=== PATIENT | male | born 1950 | race Caucasian/White ===

== ENCOUNTER 2020-01-01 12:35 | Outpatient (REF) | payer BC, SELFPAY ==
[2020-01-01 14:36] LABS: MANUAL DIFF FLAG NO
[2020-01-01 14:43] LABS: Basophils Percent Auto 0.6 % (0-2); Eosinophils Absolute Auto 0.1 X10*3/uL (0.0-0.4); Eosinophils Percent Auto 1.5 % (0-4); Hematocrit 49.3 % (42-52); Hemoglobin 15.5 g/dl (14.0-18.0); Imm Gran Abs Auto 0.01 X10*3/uL (0.00-0.03); Imm Gran Pct Auto 0.2 % (0.0-0.4); Lymphocytes Absolute Auto 0.8 X10*3/uL (1.2-4.9); Lymphocytes Percent Auto 16.7 % (20-40); Mean Corpuscular HGB Conc 31.4 g/dl (31.0-36.0); Mean Corpuscular Hemoglobin 28.8 pg (27.0-33.0); Mean Corpuscular Volume 91.5 fL (80-98); Monocytes Absolute Auto 0.5 X10*3/uL (0.1-1.2); Monocytes Percent Auto 9.6 % (2-11); Neutrophils Absolute Auto 3.4 X10*3/uL (2.0-8.3); Neutrophils Percent Auto 71.4 % (45-73); Platelet Count 196 X10*3/uL (160-400); Red Blood Count 5.39 X10*6/uL (4.60-5.80); Red Cell Distribution Width 14.8 % (11.0-16.0); White Blood Count 4.8 X10*3/uL (4.8-10.8)
[2020-01-01 15:25] LABS: Alanine Aminotransferase 72 U/L (0-40); Albumin Level 3.9 g/dL (3.5-5.0); Alkaline Phosphatase 102 U/L (39-117); Anion Gap 11 (12-20); Aspartate Amino Transferase 51 U/L (5-37); Bilirubin Total 0.6 mg/dL (0.0-1.0); Blood Urea Nitrogen 20 mg/dL (9-16); Calcium 8.7 mg/dL (8.4-10.2); Carbon Dioxide 32 mmol/L (22-29); Chloride 103 mmol/L (96-108); Estimated Average Glucose 108 mg/dL; Estimated Glomerular Filt Rate > 60; Glucose Fasting 78 mg/dL (60-99); Hemoglobin A1c % 5.4 %; Potassium 4.8 mmol/l (3.3-5.1); Sodium 141 mmol/L (135-145); Total Protein 7.1 g/dL (6.5-8.0)
== END 2020-01-01 12:36 | disposition home or self-care (01) ==
LOC: HO.HMGCLDS 12:35
PROVIDERS: PCP Family Medicine; Visit Provider Family Medicine
DX: E11.9 Type 2 diabetes mellitus without complications (principal)
CPT/HCPCS: 36415; 80053; 83036; 85025

== ENCOUNTER 2020-08-11 12:47 | Outpatient (REF) | payer BC, SELFPAY ==
[2020-08-11 13:48] LABS: MANUAL DIFF FLAG NO
[2020-08-11 13:53] LABS: Basophils Percent Auto 0.4 % (0-2); Eosinophils Absolute Auto 0.1 X10*3/uL (0.0-0.4); Hemoglobin 16.2 g/dl (14.0-18.0); Imm Gran Abs Auto 0.01 X10*3/uL (0.00-0.03); Imm Gran Pct Auto 0.2 % (0.0-0.4); Lymphocytes Absolute Auto 0.8 X10*3/uL (1.2-4.9); Lymphocytes Percent Auto 17.7 % (20-40); Mean Corpuscular HGB Conc 31.8 g/dl (31.0-36.0); Mean Corpuscular Hemoglobin 29.9 pg (27.0-33.0); Mean Corpuscular Volume 94.3 fL (80-98); Monocytes Absolute Auto 0.3 X10*3/uL (0.1-1.2); Monocytes Percent Auto 7.5 % (2-11); Neutrophils Absolute Auto 3.3 X10*3/uL (2.0-8.3); Neutrophils Percent Auto 72.2 % (45-73); Platelet Count 203 X10*3/uL (160-400); Red Blood Count 5.41 X10*6/uL (4.60-5.80); Red Cell Distribution Width 14.1 % (11.0-16.0); White Blood Count 4.5 X10*3/uL (4.8-10.8)
[2020-08-11 14:20] LABS: Alanine Aminotransferase 28 U/L (0-40); Albumin Level 3.9 g/dL (3.5-5.0); Alkaline Phosphatase 91 U/L (39-117); Anion Gap 12 (12-20); Aspartate Amino Transferase 30 U/L (5-37); Bilirubin Total 0.7 mg/dL (0.0-1.0); Blood Urea Nitrogen 25 mg/dL (9-16); Calcium 9.4 mg/dL (8.4-10.2); Carbon Dioxide 31 mmol/L (22-29); Chloride 105 mmol/L (96-108); Estimated Glomerular Filt Rate > 60; Glucose Random 77 mg/dL (60-115); Potassium 4.5 mmol/L (3.3-5.1); Sodium 143 mmol/L (135-145); Total Protein 7.1 g/dL (6.5-8.0)
[2020-08-11 14:33] LABS: Erythrocyte Sedimentation Rate 9 MM/HR (0-15)
[2020-08-11 14:40] LABS: Free T4 (Free Thyroxine) 0.93 ng/dL (0.71-1.85); Prostate Specific Antigen Scr 0.37 ng/mL (<0.05-4.0)
== END 2020-08-11 12:48 | disposition home or self-care (01) ==
LOC: HO.HMGCLDS 12:47
PROVIDERS: PCP Family Medicine; Visit Provider Family Medicine
DX: Z12.5 Encounter for screening for malignant neoplasm of prostate (principal); R53.83 Other fatigue
CPT/HCPCS: 36415; 80053; 84153; 84439; 84443; 85025; 85652

== ENCOUNTER 2021-05-27 13:34 | Outpatient (REF) | payer BC, SELFPAY ==
[2021-05-27 15:59] LABS: Eosinophils Absolute Auto 0.1 X10*3/uL (0.0-0.4); Eosinophils Percent Auto 1.4 % (0-4); Imm Gran Abs Auto 0.01 X10*3/uL (0.00-0.03); Imm Gran Pct Auto 0.2 % (0.0-0.4); MANUAL DIFF FLAG SCAN; Mean Platelet Volume 13.5 fL (9.4-12.4); Red Cell Distribution Width 14.9 % (11.0-16.0); SCAN SMEAR FLAG 1
[2021-05-27 16:01] LABS: Basophils Percent Auto 0.2 % (0-2); Hemoglobin 16.2 g/dl (14.0-18.0); Lymphocytes Absolute Auto 0.7 X10*3/uL (1.2-4.9); Lymphocytes Percent Auto 16.2 % (20-40); Mean Corpuscular HGB Conc 31.8 g/dl (31.0-36.0); Mean Corpuscular Hemoglobin 29.7 pg (27.0-33.0); Mean Corpuscular Volume 93.6 fL (80.0-98.0); Monocytes Absolute Auto 0.4 X10*3/uL (0.1-1.2); Monocytes Percent Auto 9.6 % (2-11); Neutrophils Absolute Auto 3.2 x10*3/uL (2.0-8.3); Neutrophils Percent Auto 72.4 % (45-73); Platelet Count 153 X10*3/uL (160-400); Red Blood Count 5.45 X10*6/uL (4.60-5.80); White Blood Count 4.4 X10*3/uL (4.8-10.8)
[2021-05-27 16:11] LABS: Alanine Aminotransferase 31 U/L (0-40); Albumin Level 3.8 g/dL (3.5-5.0); Alkaline Phosphatase 84 U/L (39-117); Anion Gap 12 (12-20); Aspartate Amino Transferase 34 U/L (5-37); Bilirubin Total 0.8 mg/dL (0.0-1.0); Blood Urea Nitrogen 21 mg/dL (9-16); Calcium 9.5 mg/dL (8.4-10.2); Carbon Dioxide 29 mmol/L (22-29); Chloride 104 mmol/L (96-108); Estimated Glomerular Filt Rate > 60; Glucose Random 75 mg/dL (60-115); PLT ABN DIST 1; Potassium 4.5 mmol/L (3.3-5.1); Sodium 140 mmol/L (135-145); Total Protein 7.3 g/dL (6.5-8.0)
[2021-05-27 16:50] LABS: SLIDE REVIEW VERIFIED
== END 2021-05-27 13:35 | disposition home or self-care (01) ==
LOC: HO.HMGCLDS 13:34
PROVIDERS: Visit Provider Family Medicine
DX: R53.1 Weakness (principal); I10 Essential (primary) hypertension; I48.91 Unspecified atrial fibrillation
CPT/HCPCS: 36415; 80053; 85025

== ENCOUNTER 2021-10-02 12:15 | Outpatient (REF) | payer BC, SELFPAY ==
[2021-10-02 13:38] LABS: MANUAL DIFF FLAG NO
[2021-10-02 13:52] LABS: Basophils Percent Auto 0.4 % (0-2); Eosinophils Percent Auto 0.8 % (0-4); Hematocrit 47.7 % (42.0-52.0); Hemoglobin 15.6 g/dl (14.0-18.0); Imm Gran Abs Auto 0.01 X10*3/uL (0.00-0.03); Imm Gran Pct Auto 0.2 % (0.0-0.4); Lymphocytes Absolute Auto 0.7 X10*3/uL (1.2-4.9); Lymphocytes Percent Auto 14.2 % (20-40); Mean Corpuscular HGB Conc 32.7 g/dl (31.0-36.0); Mean Corpuscular Hemoglobin 31.1 pg (27.0-33.0); Mean Corpuscular Volume 95.2 fL (80.0-98.0); Monocytes Absolute Auto 0.5 X10*3/uL (0.1-1.2); Monocytes Percent Auto 10.7 % (2-11); Neutrophils Absolute Auto 3.6 x10*3/uL (2.0-8.3); Neutrophils Percent Auto 73.7 % (45-73); Platelet Count 152 X10*3/uL (160-400); Red Blood Count 5.01 X10*6/uL (4.60-5.80); Red Cell Distribution Width 14.4 % (11.0-16.0); White Blood Count 4.9 X10*3/uL (4.8-10.8)
[2021-10-02 14:02] LABS: Anion Gap 15 (12-20); Blood Urea Nitrogen 19 mg/dL (9-16); Carbon Dioxide 26 mmol/L (22-29); Chloride 103 mmol/L (96-108); Estimated Glomerular Filt Rate > 60; Potassium 4.4 mmol/L (3.3-5.1); Sodium 140 mmol/L (135-145)
== END 2021-10-02 12:16 | disposition home or self-care (01) ==
LOC: HO.10HDL 12:15
PROVIDERS: Visit Provider Family Medicine
DX: I10 Essential (primary) hypertension (principal); I48.91 Unspecified atrial fibrillation; S00.03XD Contusion of scalp, subsequent encounter
CPT/HCPCS: 36415; 80051; 82565; 84520; 85025

== ENCOUNTER 2021-10-26 11:38 | Emergency (ER) | payer BC, SELFPAY ==
--- NOTE | ~2021-10-26 | CT_ITS ---
EXAMINATION: CT HEAD WITHOUT CONTRAST CLINICAL INFORMATION: Mass at vertex. COMPARISON: None TECHNIQUE: Contiguous axial imaging was performed from the skull base to vertex without intravenous administration of contrast. Coronal and sagittal reformatted images were obtained. This CT examination was performed using dose optimization techniques as appropriate, variously including the following: *Automated exposure control *Adjustment of mA and/or kV according to patient size (this includes techniques or standardized protocols for targeted exams where dose is matched to indication/reason for exam; i.e. extremities or head) *Use of iterative reconstruction technique DLP: 820 mGy-cm FINDINGS: There is mild widening of the cortical sulci and associated ventriculomegaly. Asymmetric dilatation of the right lateral ventricle most pronounced in the right frontal horn. The third and fourth ventricles are in their normal midline position. The basilar and prepontine cisterns are unremarkable. Encephalomalacia is seen extending from the anterior aspect of the right temporal lobe in the inferior right frontal and parietal lobe in the distribution of the right middle cerebral artery. Encephalomalacia is also seen posteromedially in the left occipital lobe with enlargement of the adjacent left occipital horn. There is no acute intra or extracerebral abnormality. There is no mass effect or midline shift. Moderate size complex septated lesion to the right of midline at the vertex measuring approximately 2.8 x 2.2 x 2.5 cm (image 3, series 3; image 93, series 8). Mild subjacent subgaleal reaction is seen. Sections through the bony calvarium are unremarkable. The orbits are intact. The paranasal sinuses show mild mucosal thickening in the ethmoid sinuses and visualized left maxillary sinus. The mastoid air cells are clear. CT/CT head/brain wo IV con IMPRESSION: 1. No acute intracranial abnormality. 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 2. Complex subcutaneous lesion containing air in the cortex is detailed above. This is nonspecific and could represent is a complex cyst or abscess. Malignancy would be less likely but cannot be excluded. Surgical consultation is recommended. Biopsy should be considered.
[2021-10-26 11:46] VITALS: BP 111/69; PULSE 74; RESP 16; TEMP 36.1; O2SAT 100; BMI 24.3
--- NOTE | 2021-10-26 15:05 | ED.GENADULT ---
HPI - General Adult General Chief complaint: Head Injury Stated complaint: Bleeding hematoma on head Time Seen by Provider: 10/26/21 12:04 Source: patient and family Mode of arrival: ambulatory History of Present Illness HPI narrative: 71-year-old male with history of throat CA and a fall in mid August that he was evaluated at [facility] for and had a scalp laceration that was repaired with absorbable sutures. Patient then states that after a couple of weeks he began informing a large mass at the top of his head, he has been evaluated by his primary care provider and is currently on anticoagulation. Patient then states that this morning it began bleeding significantly from the top of his head where he had a previous injury that the time of my evaluation has stopped. Related Data Allergies Allergy/AdvReac Type Severity Reaction Status Date / Time No Known Allergies Allergy Verified 10/26/21 11:51 Review of Systems Review of Systems: Pertinent positives and negatives as stated in HPI 10 point review of systems is otherwise negative. PMFSH Past Medical History Source: nursing notes reviewed Social History Social History Advance Directives: Yes Advance Directives Information Provided: Yes Advance Directives on File: No Physical Exam ED Vital Signs: Vital Signs - 24 hr 10/26/21 11:46 Temperature 96.9 F Pulse Rate 74 Respiratory Rate 16 Blood Pressure 111/69 Pulse Oximetry 100 Oxygen Delivery Method Room Air BMI result Body Mass Index 24.3 VITAL SIGNS: Reviewed. GENERAL: Well developed, well nourished, in no acute distress. HEAD: Normocephalic/large dark, hard, thickened protrusion from the scalp that is hemostatic, does not appear as a classic hematoma EYES: PERRLA, EOMI EARS: Ext canals without abnormality OROPHARYNX: no oral lesions noted, posterior pharynx clear LUNGS: Normal breath sounds. No adventitious sounds or accessory muscle use. SpO2<100> CARDIOVASCULAR: Regular rate and rhythm without noted murmurs ABDOMEN: Soft, non-tender, non-distended with bowel sounds. MUSCULOSKELETAL: No tenderness, deformities, or effusions noted on gross inspection. EXTREMITIES: No cyanosis, clubbing or edema. SKIN: Inspection of the skin reveals no rashes NEUROLOGIC: Alert and oriented x 4. Strength and sensation to light touch were grossly intact x 4. Course Course Course Narrative: 71-year-old male with history and clinical presentation of possible and crusted hematoma, however the sequence of events is inconsistent as patient denies any further traumatic injury to the head/scalp area. Protrusion from the scalp almost appears to be mass-like. Will obtain CT scan for further evaluation. Patient is otherwise hemodynamically stable and on review of CT scan they recommend surgical consult and I did discuss the case with Dr. Coleman who came by and saw the patient at bedside and removed an approximate 2 cm hardened hematoma that appeared to a formed after the laceration had opened. Bleeding was controlled with silver nitrate and the scalp was redressed, dressing changes were provided to the and patient is currently stable for discharge to home. He will follow-up with Dr. Arreola is in 2 weeks. Discharge Plan Discharge Clinical Impression: Scalp hematoma Patient Disposition: Home, Self-Care Instructions: Hematoma (ED) Additional Instructions: 1. Continue the dressing changes, daily, as explained by Dr. Coleman 2. A referral has been provided to you below and you should follow-up with Dr. Coleman is in 2 weeks. Return to the ER for worsening symptoms. Referrals: Omer Murillo MD [Primary Care Provider] - (Scalp hematoma) Samm Coleman MD [Physician] - 2 weeks (Scalp hematoma)
--- NOTE | 2021-10-26 16:59 | P.CONGS_ITS ---
History of Present Illness Consult details Consult date: 10/26/21 Narrative: 71-year-old male here in the ER because of bleeding from a previous laceration. He says that he had fallen and hit his head about 8 weeks ago and required sutures for closure at the ER in [facility] at that time. He is on a blood thinner and about 2 weeks layer, his had noticed this small lump coming through the laceration site. Sutures apparently for absorbable and this had dissolved around that time already. This red lump had persisted and was noted to have significant oozing today. His therefore brought him to the ER. Denies any pain. Denies any repeated trauma. Review of Systems Constitutional: Constitutional: Denies chills and Denies fever(s) Cardiovascular: Cardiovascular: Denies chest pain, Denies dyspnea and Reports dyspnea on exertion Respiratory: Respiratory: Denies cough, Denies dyspnea and Reports dyspnea on exertion Gastrointestinal: Gastrointestinal: Denies hematochezia and Denies change in bowel habits Genitourinary: Genitourinary: Denies hematuria and Denies difficulty urinating Musculoskeletal: Musculoskeletal: Denies back pain and Denies limited range of motion Neurologic: Denies focal weakness and Denies convulsions Psychiatric: Psychiatric: Denies depression and Denies mood swings PMFSH Past Medical History Medical History (Updated 10/26/21 @ 17:02 by Samm Coleman MD) Atrial fibrillation Social History Social History Advance Directives: Yes Advance Directives Information Provided: Yes Advance Directives on File: No Meds Allergies Allergy/AdvReac Type Severity Reaction Status Date / Time No Known Allergies Allergy Verified 10/26/21 11:51 Physical Exam Vital Signs: Vital Signs: Last Vital Signs Temp 96.9 F 10/26/21 11:46 Pulse 74 10/26/21 11:46 Resp 16 10/26/21 11:46 BP 111/69 10/26/21 11:46 Pulse Ox 100 10/26/21 11:46 O2 Del Method 10/26/21 11:46 BMI result Body Mass Index 24.3 Const: General: comfortable and no acute distress Orientation/consciousness: patient oriented x3 HEENT: Other: at the crown of his head is note of an open wound with a large hematoma stuck to it. There was note of oozing at the base of the wound and the hematoma was removed. Neck: Neck: Yes no lymphadenopathy Resp: Auscultation: clear to auscultation bilaterally Cardio: Rhythm: abnormal rhythm GI: Palpation (GI): Soft to palpation, nontender and no guarding Neuro: General: patient oriented x3 Results Labs Labs: All other labs normal. Impressions Head CT 10/26/21 14:30 IMPRESSION: 1. No acute intracranial abnormality. 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 2. Complex subcutaneous lesion containing air in the cortex is detailed above. This is nonspecific and could represent is a complex cyst or abscess. Malignancy would be less likely but cannot be excluded. Surgical consultation is recommended. Biopsy should be considered. Assessment and Plan (1) Scalp hematoma: Status: Acute Examination shows a large open wound big hematoma. I was able to gently move the hematoma covering the entire wound. The wound dimension was about 2.5 cme by 2 cm.There was note of oozing 1 particular area. I used silver nitrate sticks to control this I then applied light wet to dry packing on the area and covered this with a gauze and wrapped the head with Justyna roll. I had showed the how to apply the dressings. Unfortunately, he is on a blood thinner which says he is unable to discontinue so there is always the risk of oozing from the area I can otherwise seen in the office for wound check down the line. The wound will be allowed to close by secondary intention. This will require good wound care. The patient's says she understands the instructions and is comfortable with the plan. Procedures Date of Service Date of Service: 10/26/21
[2021-10-26] MEDS: Silver Nitrate Applicator STICK..EA. 3 APPL TOPICAL (17:15)
== END 2021-10-26 17:28 | disposition home or self-care (01) ==
PROVIDERS: Emergency Provider Student in an Organized Health Care Education/Training Program; PCP Family Medicine
DX: S00.03XD Contusion of scalp, subsequent encounter (principal); X58.XXXD Exposure to other specified factors, subsequent encounter
CPT/HCPCS: 70450; 99283; 99284

== ENCOUNTER 2021-12-23 10:00 | Outpatient (REF) | payer MEDICARE, SELFPAY ==
[2021-12-23 11:58] LABS: Estimated Average Glucose 91 mg/dL; Hemoglobin A1c % 4.8 %
[2021-12-23 12:10] LABS: Alanine Aminotransferase 18 U/L (0-40); Albumin Level 3.8 g/dL (3.5-5.0); Alkaline Phosphatase 87 U/L (39-117); Anion Gap 15 (12-20); Aspartate Amino Transferase 35 U/L (5-37); Bilirubin Total 0.7 mg/dL (0.0-1.0); Blood Urea Nitrogen 19 mg/dL (9-16); Calcium 9.2 mg/dL (8.4-10.2); Carbon Dioxide 24 mmol/L (22-29); Chloride 106 mmol/L (96-108); Cholesterol 150 mg/dL; Estimated Glomerular Filt Rate > 60; Glucose Fasting 66 mg/dL (60-99); HDL Cholesterol 37 mg/dL; LDL Cholesterol Calculated 101 mg/dl; Potassium 4.4 mmol/L (3.3-5.1); Sodium 141 mmol/L (135-145); Total Protein 7.3 g/dL (6.5-8.0); Triglycerides 64 mg/dL
== END 2021-12-23 10:01 | disposition home or self-care (01) ==
LOC: HO.HMGCLDS 10:00
PROVIDERS: PCP Family Medicine; Visit Provider Family Medicine
DX: E11.9 Type 2 diabetes mellitus without complications (principal); E78.00 Pure hypercholesterolemia, unspecified; R63.4 Abnormal weight loss
CPT/HCPCS: 36415; 80053; 80061; 83036

== ENCOUNTER 2022-09-03 13:15 | Outpatient (REF) | payer MEDICARE, SELFPAY ==
[2022-09-03 16:48] LABS: MANUAL DIFF FLAG NO
[2022-09-03 17:12] LABS: Estimated Average Glucose 88 mg/dL; Hemoglobin A1c % 4.7 %
[2022-09-03 17:29] LABS: Basophils Percent Auto 0.2 % (0-2); Eosinophils Absolute Auto 0.1 X10*3/uL (0.0-0.4); Eosinophils Percent Auto 1.1 % (0-4); Hematocrit 52.7 % (42.0-52.0); Hemoglobin 17.1 g/dl (14.0-18.0); Imm Gran Abs Auto 0.01 X10*3/uL (0.00-0.03); Imm Gran Pct Auto 0.2 % (0.0-0.4); Lymphocytes Absolute Auto 0.7 X10*3/uL (1.2-4.9); Lymphocytes Percent Auto 15.2 % (20-40); Mean Corpuscular HGB Conc 32.4 g/dl (31.0-36.0); Mean Corpuscular Hemoglobin 30.5 pg (27.0-33.0); Mean Corpuscular Volume 93.9 fL (80.0-98.0); Mean Platelet Volume 13.9 fL (9.4-12.4); Monocytes Absolute Auto 0.4 X10*3/uL (0.1-1.2); Monocytes Percent Auto 9.1 % (2-11); Neutrophils Absolute Auto 3.5 x10*3/uL (2.0-8.3); Neutrophils Percent Auto 74.2 % (45-73); Platelet Count 173 X10*3/uL (160-400); Red Blood Count 5.61 X10*6/uL (4.60-5.80); Red Cell Distribution Width 13.8 % (11.0-16.0); White Blood Count 4.7 X10*3/uL (4.8-10.8)
[2022-09-03 17:44] LABS: Alanine Aminotransferase 26 U/L (0-40); Alkaline Phosphatase 94 U/L (39-117); Anion Gap 16 (12-20); Aspartate Amino Transferase 35 U/L (5-37); Bilirubin Total 0.9 mg/dL (0.0-1.0); Blood Urea Nitrogen 19 mg/dL (9-16); Calcium 10.3 mg/dL (8.4-10.2); Carbon Dioxide 23 mmol/L (22-29); Chloride 105 mmol/L (96-108); Estimated Glomerular Filt Rate > 60; Glucose Fasting 55 mg/dL (60-99); Potassium 4.4 mmol/L (3.3-5.1); Sodium 140 mmol/L (135-145); Total Protein 7.9 g/dL (6.5-8.0)
== END 2022-09-03 13:16 | disposition home or self-care (01) ==
LOC: HO.HMGCLDS 13:15
PROVIDERS: PCP Family Medicine; Visit Provider Family Medicine
DX: I10 Essential (primary) hypertension (principal); E11.9 Type 2 diabetes mellitus without complications; R53.1 Weakness
CPT/HCPCS: 36415; 80053; 83036; 85025

== ENCOUNTER 2023-06-07 16:06 | Emergency (ER) | payer MEDICARE, SELFPAY ==
--- NOTE | ~2023-06-07 | XR_ITS ---
EXAMINATION: XR ABDOMEN KUB CLINICAL INDICATION: G-tube placement COMPARISON: None available. TECHNIQUE: AP view of the abdomen. FINDINGS: There is uncertain position of the G-tube. Tube is seen projecting lateral to the stomach bubble. The tip of the tube is not included in the [id number]/imaged. Nonobstructive bowel gas pattern. No free air. Degenerative changes of the spine. XR/XR KUB IMPRESSION: Uncertain position of G-tube as described above. Repeat imaging recommended.
--- NOTE | ~2023-06-07 | XR_ITS ---
EXAMINATION: XR ABDOMEN KUB CLINICAL INDICATION: Gastrostomy replaced. COMPARISON: Abdominal radiographs dated 06/07/2023 at 4:49 PM. TECHNIQUE: AP view of the abdomen. 30 mL of Gastrografin was instilled into the gastrostomy tube. XR/XR KUB FINDINGS / IMPRESSION: There is a gastrostomy tube overlying the left upper abdomen. There is contrast within the proximal aspect of the stomach. On the single image provided there is no evidence of contrast extravasation. The bowel gas pattern is nonobstructive. There are degenerative changes of the spine.
[2023-06-07 16:28] VITALS: BP 111/70; PULSE 106; RESP 18; TEMP 37.2; O2SAT 97; BMI 25.8
--- NOTE | 2023-06-07 16:28 | ED_ITS ---
HPI - General Adult General Chief complaint: General Medical Stated complaint: Needs G-Tube Time Seen by Provider: 06/07/23 20:07 Source: patient Mode of arrival: ambulatory History of Present Illness HPI narrative: 73-year-old male who states he last had a tube feeding yesterday and states that the tube fell out a few hours ago and that it typically gets changed every 3 months. Patient states that has this in place for history of throat CA and CVA. Related Data Allergies Allergy/AdvReac Type Severity Reaction Status Date / Time No Known Allergies Allergy Verified 06/07/23 16:35 Review of Systems Review of Systems: Pertinent positives and negatives as stated in HPI [facility] Past Medical History Source: nursing notes reviewed Medical History Atrial fibrillation Social History Social History Advance Directives: No Advance Directives Information Provided: No Physical Exam ED Vital Signs: Vital Signs - 24 hr 06/07/23 16:28 06/07/23 20:35 06/07/23 21:59 Temperature 98.9 F 98.5 F 98.2 F Pulse Rate 106 H 100 91 Respiratory Rate 18 16 16 Blood Pressure 111/70 124/83 100/70 Pulse Oximetry 97 97 97 Oxygen Delivery Method Room Air Room Air Room Air BMI result Body Mass Index 25.8 VITAL SIGNS: Reviewed. GENERAL: Well developed, well nourished, in no acute distress. HEAD: Normocephalic/atraumatic EYES: PERRLA, EOMI LUNGS: Normal breath sounds. No adventitious sounds or accessory muscle use. SpO2<97> CARDIOVASCULAR: Regular rate and rhythm without noted murmurs ABDOMEN: Soft, non-tender, non-distended with bowel sounds, G-tube is completely out, the site looks well-approximated although noted granulation tissue.. MUSCULOSKELETAL: No tenderness, deformities, or effusions noted on gross inspection. EXTREMITIES: No cyanosis, clubbing or edema. SKIN: Inspection of the skin reveals no rashes NEUROLOGIC: Alert and oriented x 4. Strength and sensation to light touch were grossly intact x 4. Course Course Course Narrative: This is an RME: Additional HPI, ROS, PE not included below will be deferred to primary provider. Patient is a 73-year-old male who presents emergency department reporting his g-tube fell out a few hours [employer], 17F, reports tylically replaced every 3 months. Medications Administered Discontinued Medications Generic Name Dose Route Start Last Admin Trade Name Codey PRN Reason Stop Dose Admin Diatrizoate Meglum/Diatrizoate Sod 30 ml 06/07/23 22:10 06/07/23 22:10 Diatrizoate Meglumine, Sodium 30 Ml Solution PO 06/07/23 22:11 30 ml ONCE ONE Administration Procedures Feeding Tube Replacement Type of Tube: gastrostomy Insertion Site Prior to Procedure: clean Tube Used for Reinsertion: other [place] Tube Size (F): 16 Balloon size (mL): 5 Verification of Placement: KUB and gastrografin injection Tube Secured by: tape/dressing Patient Tolerated Procedure: well Medical Decision Making Medical Decision Making MDM Narrative: 73-year-old male with dislodged gastrostomy tube confirmed by x-ray, after locating similar gastrostomy tube successfully placed with 5 cc saline in the balloon, prelim read on x-ray with Gastrografin shows good placement. Dressing placed and patient discharged. X-ray shows good placement of tube. Patient discharged home. Differential Diagnosis Differential Diagnoses: The differential diagnosis associated with the presentation includes Please see the discussion above Admission/Observation Consideration of admission/observation: Escalation of care including admission/observation considered Please see the discussion above Radiology Impression Discussion of test interpretation with radiology: I have reviewed the radiologist's reading. Radiologist Impression: Please see the discussion above External Record Review External record reviewed: Outpatient record and Prior outpatient labs Critical Care Time Critical Care Time Critical Care Time: Yes Total Critical Care Time: 30 Attestation: I personally attest to this time spent taking care of the patient. Discharge Plan Discharge Clinical Impression: Dislodged gastrostomy tube Patient Disposition: Home, Self-Care Instructions: Tube Feeding (DC) Additional Instructions: Please follow-up with your primary care doctor by calling the office on Saturday. Referrals: Omer Murillo MD [Primary Care Provider] - Print Language: Italian
[2023-06-07 20:35] VITALS: BP 124/83; PULSE 100; RESP 16; TEMP 36.9; O2SAT 97
[2023-06-07 21:59] VITALS: BP 100/70; PULSE 91; RESP 16; TEMP 36.8; O2SAT 97
[2023-06-07] MEDS: Diatrizoate Meglumine, Sodium 30 ML SOLUTION PO (22:10)
[2023-06-07 23:16] VITALS: BP 100/70; PULSE 91; RESP 16; TEMP 36.8; O2SAT 97
== END 2023-06-07 23:17 | disposition home or self-care (01) ==
PROVIDERS: Emergency Provider Student in an Organized Health Care Education/Training Program; PCP Family Medicine
DX: Z43.1 Encounter for attention to gastrostomy (principal); Z85.89 Personal history of malignant neoplasm of other organs and systems; Z86.73 Personal history of transient ischemic attack (TIA), and cerebral infarction without residual deficits
CPT/HCPCS: 43762; 74018; 99283

== ENCOUNTER 2023-08-19 12:32 | Outpatient (REF) | payer MEDICARE, SELFPAY ==
[2023-08-19 13:19] LABS: MANUAL DIFF FLAG NO
[2023-08-19 13:28] LABS: Basophils Percent Auto 0.3 % (0-2); Eosinophils Absolute Auto 0.1 X10*3/uL (0.0-0.4); Eosinophils Percent Auto 1.7 % (0-4); Hematocrit 53.6 % (42.0-52.0); Hemoglobin 17.6 g/dl (14.0-18.0); Imm Gran Abs Auto 0.01 X10*3/uL (0.00-0.03); Imm Gran Pct Auto 0.3 % (0.0-0.4); Lymphocytes Absolute Auto 0.8 X10*3/uL (1.2-4.9); Lymphocytes Percent Auto 22.2 % (20-40); Mean Corpuscular HGB Conc 32.8 g/dl (31.0-36.0); Mean Corpuscular Hemoglobin 30.8 pg (27.0-33.0); Mean Corpuscular Volume 93.9 fL (80.0-98.0); Mean Platelet Volume 12.5 fL (9.4-12.4); Monocytes Absolute Auto 0.3 X10*3/uL (0.1-1.2); Neutrophils Absolute Auto 2.3 x10*3/uL (2.0-8.3); Neutrophils Percent Auto 66.5 % (45-73); Platelet Count 216 X10*3/uL (160-400); Red Blood Count 5.71 X10*6/uL (4.60-5.80); Red Cell Distribution Width 13.8 % (11.0-16.0); White Blood Count 3.4 X10*3/uL (4.8-10.8)
[2023-08-19 13:41] LABS: Estimated Average Glucose 94 mg/dL; Hemoglobin A1c % 4.9 % (<6.0)
[2023-08-19 13:57] LABS: Alanine Aminotransferase 15 U/L (0-40); Albumin Level 3.8 g/dL (3.5-5.0); Alkaline Phosphatase 94 U/L (39-117); Anion Gap 12 (12-20); Aspartate Amino Transferase 23 U/L (5-37); Bilirubin Total 0.8 mg/dL (0.0-1.0); Blood Urea Nitrogen 20 mg/dL (9-16); Carbon Dioxide 29 mmol/L (22-29); Chloride 104 mmol/L (96-108); Estimated Glomerular Filt Rate > 60; Glucose Fasting 69 mg/dL (60-99); Potassium 3.8 mmol/L (3.3-5.1); Sodium 141 mmol/L (135-145); Total Protein 7.8 g/dL (6.5-8.0)
== END 2023-08-19 12:33 | disposition home or self-care (01) ==
LOC: HO.HMGCLDS 12:32
PROVIDERS: PCP Family Medicine; Visit Provider Family Medicine
DX: E11.9 Type 2 diabetes mellitus without complications (principal); R53.1 Weakness; R64 Cachexia
CPT/HCPCS: 36415; 80053; 83036; 85025

== ENCOUNTER 2023-08-21 16:00 | Outpatient (REF) | payer MEDICARE, SELFPAY ==
[2023-08-22 12:28] LABS: Creatinine Urine 36.87 mg/dL; Microalbum/Creatinine Ratio Ur 13.5 ug/mg cr (<30)
== END 2023-08-21 16:01 | disposition home or self-care (01) ==
LOC: HO.HMGCLNP 16:00
PROVIDERS: PCP Family Medicine; Visit Provider Family Medicine
DX: E11.9 Type 2 diabetes mellitus without complications (principal); R53.1 Weakness; R64 Cachexia
CPT/HCPCS: 82043; 82570

== ENCOUNTER 2024-06-08 13:31 | Outpatient (REF) | payer MEDICARE, SELFPAY ==
--- OUTSIDE RECORDS SUMMARY | 2024-06-08 15:34 | XMS_ITS | Clinical Summary ---
Author Organization [facility] Address [address] [place] [address] Care Team Providers Care Tube Splicer Name Role Phone Unknown Primary Care Provider +[phone] -0000 Social History Tobacco Use Types Packs/Day Years Used Date Smoking Tobacco: Never Assessed Sex and Gender Information Value Date Recorded Sex Assigned at Not on file Gender Identity Not on file Sexual Orientation Not on file Plan of Treatment Health Maintenance Due Date Last Done Comments Hepatitis C Virus Screening 1950 DTaP/Tdap/Td Vaccines (1 - Tdap) 1970 Colonoscopy 1996 Pneumococcal Vaccines 50+ (1 of 1 - PCV) 2001 Zoster (Shingles) Vaccine (1 of 2) 2001 Influenza Vaccine 09/26/2023 COVID-19 Vaccine ( - 2023-2 5 season) 2023 RSV Vaccine 60 years and old er and Patients (1 - 1-dose 75+ series) 2026 Hepatitis B Vaccines Aged Out No long er eligible based on patient's age to complete this topic Care Teams Tube Splicer Relationship Specialty Start Date End Date Unknown Unknow Provider Address PCP - General 09/08/18
[2024-06-08 16:20] LABS: Estimated Average Glucose 97 mg/dL; Total Hemoglobin (HGBA1C) 3672.0708 umol/L
[2024-06-08 16:32] LABS: Alanine Aminotransferase 29 U/L (0-40); Anion Gap 10 (12-20); Aspartate Amino Transferase 46 U/L (5-37); Blood Urea Nitrogen 22 mg/dL (9-16); Carbon Dioxide 30 mmol/L (22-29); Chloride 102 mmol/L (96-108); Estimated Glomerular Filt Rate > 60; Glucose Fasting 75 mg/dL (60-99); Potassium 4.3 mmol/L (3.3-5.1); Sodium 138 mmol/L (135-145)
== END 2024-06-08 13:32 | disposition home or self-care (01) ==
LOC: HO.HMGCLDS 13:31
PROVIDERS: PCP Family Medicine; Visit Provider Family Medicine
DX: I10 Essential (primary) hypertension (principal); E78.00 Pure hypercholesterolemia, unspecified; E11.9 Type 2 diabetes mellitus without complications; Z79.899 Other long term (current) drug therapy
CPT/HCPCS: 36415; 80051; 82550; 82565; 82947; 83036; 84450; 84460; 84520

== ENCOUNTER 2024-08-06 09:44 | Outpatient (AMB) | payer MEDICARE, SELFPAY ==
--- NOTE | 2024-08-06 09:57 | A.OFFVIS_ITS ---
Intake Visit Reasons: urinary incontinence Intake Note: Patient is present for URINARY INCONTINENCE Urology Medication:NONE Antibiotic Allergy:NONE Blood Thinner:NONE TODAY'S PVR:169ML'S [employer] Required: No Allergies No Known Allergies Allergy (Verified 08/06/24 09:58) HPI Comments Details: Louie is a pleasant male. Accompanied by his . He is a patient of Dr. Murlilo. He is seen for the following urologic issues - urinary incontinence Background of stroke with dementia Has on sensed urination Using multiple pads per day Has been trialed on imipramine Discussed loss of frontal control that occurs with dementia Recommend timed voiding interested in trial of medication versus [place] catheter at nighttime Given cognitive issues can not use anticholinergics Trial beta agonist [facility] Medical History Atrial fibrillation Review of Systems Const Denies chills and Denies fever(s) Card Reports no additional complaints and Denies syncope Resp Denies cough GI Denies abdominal pain and Denies heartburn Reports as per HPI and Denies change in libido Neuro Denies syncope Psych Denies change in libido Endo Denies change in libido Physical Exam Const General: cooperative, healthy appearing, comfortable and no acute distress Orientation/consciousness: patient oriented x3 HEENT Face and sinus: Yes normal facial exam Mouth: moist mucous membranes Neck Neck: Yes normal visual inspection, Yes full ROM and Yes trachea midline Chest Chest palpation & inspection: normal inspection of the chest Resp Effort & Inspection: normal respiratory effort, able to speak in complete sentences and no respiratory distress GI Inspection: Yes normal to inspection Back/Spine/Pelvis Cervical Spine: normal cervical lordosis Thoracic/Lumbar Spine: thoracic and lumbar spine normal to inspection Skin General skin exam: no rashes or lesions noted Neuro General: patient oriented x3, gait normal, tone normal and moves all extremities Extrem General: Yes normal to inspection and Yes capillary refill normal Office Procedures Post Void Residual Post Residual Void Post Void Residual (PVR): 169 [id number]-[id number] Void Residual by ultrasound Assessment & Plan Assessment & Plan (1) Urge incontinence of urine: Code(s): N39.41 - Urge incontinence Category: Medical Plan Trial beta agonist Three-month follow-up Medications: New vibegron 75 mg PO DAILY 30 days 30 tabs 2RF N39.41 - Urge incontinence Patient Instructions: This note is constructed using voice recognition software. While every effort has been made to ensure accuracy studio hand errors may have been included. Imaging studies, laboratory and physical exam results were discussed and reviewed in detail. No major barriers to patient understanding were identified. An opportunity to ask questions regarding the treatment plan was provided. All questions were answered. The patient expressed understanding and agreement with the above treatment plan. The patient is aware they should contact our office by phone for worsening of their current condition or the appearance of new urologic symptoms. Compliance is encouraged with any medications and followup testing that is ordered. It is a privilege to participate in the urologic care of your patient. If you have any questions or concerns regarding treatment for the above conditions, or other urologic issues, please do not hesitate to contact me. The office telephone contact is [phone]. Sincerely, Dr Lance Martinez MD, [facility] - Urology Compassionate Specialist Care for the Genitourinary System Coding Level of Care Code New Pt Level 4 (40668) Diagnoses Urge incontinence of urine N39.41 CPT Codes Post Residual Void - PVR CPT Code: 66773-Nhrh Void Residual by ultrasound ([id number])
--- OUTSIDE RECORDS SUMMARY | 2024-08-06 10:45 | XMS_ITS | Clinical Summary ---
Author Organization [facility] Address [address] [place] [address] Care Team Providers Care Paint Supervisor Name Role Phone Unknown Primary Care Provider +[phone] -0000 Social History Tobacco Use Types Packs/Day Years Used Date Smoking Tobacco: Never Assessed Sex and Gender Information Value Date Recorded Sex Assigned at Not on file Legal Sex Male 4:43 PM EDT Gender Identity Not on file Sexual Orientation Not on file Plan of Treatment Health Maintenance Due Date Last Done Comments Hepatitis C Virus Screening 1950 DTaP/Tdap/Td Vaccines (1 - Tdap) 1970 Colonoscopy 1996 Pneumococcal Vaccines 50+ (1 of 1 - PCV) 2001 Zoster (Shingles) Vaccine (1 of 2) 2001 COVID-19 Vaccine ( - 2023-2 5 season) 2023 Influenza Vaccine 09/25/2024 RSV Vaccine 60 years and old er and Patients (1 - 1-dose 75+ series) 2026 Hepatitis B Vaccines Aged Out No long er eligible based on patient's age to complete this topic Insurance [facility] [place] OUT OF NETWORK [address] [place] [address] Care Teams Paint Supervisor Relationship Specialty Start Date End Date Unknown Unknow Provider Address PCP - General 09/08/18
== END 2024-08-06 10:32 | disposition home or self-care (01) ==
LOC: HO.HUSH 09:45
PROVIDERS: PCP Family Medicine; Visit Provider Urology
DX: N39.41 Urge incontinence (principal)
CPT/HCPCS: 99204

== ENCOUNTER → 2024-08-06 09:44 | Outpatient (BNVA) | payer MEDICARE, SELFPAY | PROVIDERS: PCP Family Medicine; Visit Provider Urology | DX: N39.41 Urge incontinence (principal) | CPT/HCPCS: 51798; 99202 ==

== ENCOUNTER 2024-09-14 14:57 | Outpatient (AMB) | payer MEDICARE, SELFPAY ==
--- NOTE | 2024-09-14 13:55 | A.OFFPC_ITS ---
Vital Signs 09/14/24 15:12 Height 5 ft 9 in Weight 161 lb BMI 23.8 BP 116/70 Blood Pressure Location Rt brachial Position Sitting Pulse 98 Pulse Source Pulse Oximeter Temp 97.2 F Temp Source Axillary Pulse Oximetry (%) 96 Oxygen Delivery Method Room Air Intake Visit Reasons: 3 MO F/UP - DEAN PT - see comments Scale And Skip Car Operator Required: No Accompanied by: Spouse Allergies No Known Allergies Allergy (Verified 09/14/24 19:55) Medication List - Last Reconciled 09/14/24 by Jigar Bernard MD apixaban (Eliquis) 5 mg PO BID imipramine HCl 25 mg PO BEDTIME metoprolol tartrate 12.5 mg PO BID mirabegron ER (Myrbetriq) 25 mg PO DAILY Tobacco use date assessed: 09/14/24 Fall risk assessment: 1 Fall in past year Last assessed Fall Risk: 09/14/24 Dental Screening Dental Screen Date: 09/14/24 Did you have a dental visit in the last 12 months?: No Did you have a dental problem in the last 6 months where you did not have access to dental care?: No [facility] Medical History Atrial fibrillation Family History Mother No problems noted. Father No problems noted. Social History Housing: House Patient Tobacco Use Status: Never used Tobacco e-Cigarette/Vaping Use: Never Used service: No Current occupational status: retired Cognitive needs: Yes (wheelchair) Hearing needs: No Vision needs: No Questionnaire PHQ-9 Over the last 2 weeks, how often have you been bothered by any of the following problems? 1. Little interest or pleasure in doing things: not at all 2. Feeling down, depressed, or hopeless: nearly every day (anxiety) 3. Trouble falling or staying asleep, or sleeping too much: nearly every day 4. Feeling tired or having little energy: not at all 5. Poor appetite or overeating: not at all 6. Feeling bad about yourself - or that you are a failure or have let yourself or your family down: not at all 7. Trouble concentrating on things, such as reading the newspaper or watching television: not at all 8. Moving or speaking so slowly that other people could have noticed. Or the opposite - being so fidgety or restless that you have been moving around a lot more than usual: not at all 9. Thoughts that you would be better off or of hurting yourself in some way: not at all Total score: 6 Source: Developed by Drs. Matthew Hill, Abiola Charlton, Efren Albarran and colleagues, with an educational mirza from [employer]. Thrive Questionnaire Date Thrive assessed: 09/14/24 I am a: Patient Within the past 12 months, did the food you bought not last and you didn't have the money to get more?: Never true Within the past 12 months, did you worry whether your food would run out before you got money to buy more?: Never true Do you have trouble paying for medicines?: No Do you have trouble getting transportation to medical appointments?: No Do you have trouble paying your heating and electricity bill?: No Do you have trouble taking care of your child, family member or friend?: No Do you have trouble with day-to-day activities such as bathing, preparing meals, shopping, managing finances, etc.?: No Are you currently unemployed and looking for a job?: No Are you interested in more education?: No THRIVE Score: 0 AUDIT C Alcohol Use Questionnaire (AUDIT-C) 1. How often do you have a drink containing alcohol?: Never 3. How often do you have six or more drinks on one occasion?: Never Total Score: 0 FLOR[place]-7 AMB Questionnaire FLORIDA-7 Date FLOR[place] - 7 assessed: 09/14/24 Feeling nervous, anxious, or on edge: 0 = Not at all Not being able to stop or control worryin = Not at all Worrying too much about different things: 0 = Not at all Trouble relaxin = Not at all Being so restless that it is hard to sit still: 0 = Not at all Becoming easily annoyed or irritable: 0 = Not at all Feeling afraid as if something awful might happen: 0 = Not at all Total [place]-7 score (0-4 normal; 5-9 mild; 10-14 moderate; 15-21 severe): 0 Source: Developed by Drs. Matthew Hill, Abiola Charlton, Efren Albarran and colleagues, with an educational mirza from [employer]. Physical exam (Primary Care) Vital Signs: Last Vital Signs Temp 97.2 F 09/14/24 15:12 Pulse 98 09/14/24 15:12 BP 116/70 09/14/24 15:12 Pulse Ox 96 09/14/24 15:12 Oxygen Delivery Method Room Air 09/14/24 15:12 BMI result Body Mass Index 23.8 Tobacco/Smoking Status: Tobacco use Status Tobacco use date assessed 09/14/24 09/14/24 13:56 Patient Tobacco Use Status Never used Tobacco 09/14/24 15:21 e-Cigarette/Vaping Use Never Used 09/14/24 13:56 PHQ-9: PHQ-9 Score PHQ-9: Total score 6 09/14/24 16:58 Thrive Assessment: Date of Thrive Assessment Date Thrive assessed 09/14/24 09/14/24 13:56 Coding Level of Care Code New Pt Level 4 (59066) Complex EM visit Add On G2211 Diagnoses Atrial fibrillation I48.91 Assessment & Plan Assessment & Plan (1) Atrial fibrillation: Code(s): I48.91 - Unspecified atrial fibrillation Category: Medical Plan: Condition is stable Plan History of Present Illness - The patient is a 74-year-old male presenting with prescription renewal for feeding tube nutrition and evaluation of dementia symptoms. - Throat cancer: Diagnosed in 2019, treated with surgery at [facility]. The patient is currently cancer-free but requires a feeding tube due to throat scarring. - Stroke: Occurred after discontinuation of warfarin during throat treatment, resulting in permanent weakness and feeding tube dependency. - Dementia: Diagnosed by Dr. Armstrong, with symptoms of forgetfulness, inability to perform daily activities, and occasional confusion over the past four to five months. - Atrial fibrillation: Ongoing condition managed by Dr. Armstrong. - Constipation: Occasional, despite adequate hydration through the G tube. - Anxiety: Patient experiences anxiety and reluctance to leave the house, contributing to fall risk. - Incontinence: Patient is very incontinent, affecting daily life. Social History - Family: with one son and one grandson. - Smoking: Denies smoking history. - Activity: Limited due to health conditions, previously enjoyed sitting and minimal activity. Review of Systems - Neurological: Reports forgetfulness and inability to perform daily activities. Denies irritability or crankiness. - Gastrointestinal: Reports occasional constipation. Denies any oral intake, all nutrition and hydration through G tube. - Genitourinary: Reports incontinence. - Psychological: Reports anxiety and reluctance to leave the house. Physical Exam General: Cooperative and healthy appearing Nutritional Appearance: Well nourished Orientation/consciousness: Patient oriented x3 Limitations: No limitations Head: Normal to inspection General: Appearance normal, both eyes and all related structures Neck: Normal visual inspection Chest: Normal palpation of entire chest wall Respiratory: N ormal respiratory effort Neurology: Patient oriented x3, but exhibits signs of early dementia. Patient has difficulty with memory, cannot feed or dress himself, and experiences confusion about locations. There is a history of stroke, resulting in permanent weakness and fall risks. Referral to neurology is recommended for further evaluation. Results Plan 1. Dementia - Plan to conduct blood work to check for B12 and folic acid deficiency. - Referral to neurology for further evaluation. 2. Feeding Tube Nutrition - Prescription renewal for Fibro[employer] nutrition, adjusted to six cartons per day. Discussion Notes I discussed with the patient the plan to conduct blood work to check for B12 and folic acid deficiency, and the referral to neurology for further evaluation of dementia symptoms. We also addressed the prescription renewal for FibroSource nutrition, adjusting it to six cartons per day. I explained that while there are limited medications for early dementia, a neurology consultation would be beneficial for further management. The patient was advised that dementia progression varies and that some individuals may require more assistance over time. Patient Instructions - Follow up with neurology as scheduled for further evaluation of dementia. - Continue using FibroSource nutrition as prescribed, six cartons per day. - Monitor for any changes in symptoms or new concerns and report them to the healthcare provider. Orders: Orders Basic Metabolic Panel Today I48.91 - Unspecified atrial fibrillation Liver Panel Today I48.91 - Unspecified atrial fibrillation Thyroid Stimulating Hormone Today I48.91 - Unspecified atrial fibrillation Complete Blood Count no Diff Today I48.91 - Unspecified atrial fibrillation Lipid Panel Today I48.91 - Unspecified atrial fibrillation UA and rflx microscopic Today I48.91 - Unspecified atrial fibrillation Vitamin B12 and Folate Today I48.91 - Unspecified atrial fibrillation
[2024-09-14 15:12] VITALS: BP 116/70; PULSE 98; TEMP 36.2; O2SAT 96; BMI 23.8
--- OUTSIDE RECORDS SUMMARY | 2024-09-14 15:42 | XMS_ITS | Clinical Summary ---
Author Organization [facility] Address [address] [place] [address] Care Team Providers Care Petroleum Products District Supervisor Name Role Phone Unknown Primary Care [...] patient's age to complete this topic Insurance [facility] [place]WORK [address] [place] [address] Care Teams Petroleum Products District Supervisor Relationship Specialty Start Date End Date Unknown Unknow Provider Address PCP - General 09/08/18
--- OUTSIDE RECORDS SUMMARY | 2024-09-14 15:42 | XMS_ITS | Clinical Summary ---
Author Organization [facility] Address [address] [place] [address] Phone Care Team Providers Care Chemical Unit Operator Name Role Phone Omer Murillo MD Primary Care Provider [phone] Social History Tobacco Use Types Packs/Day Years Used Date Smoking Tobacco: Never Assessed Education Answer Date Recorded Are you interested in more education? Not on stefanie e 06/22/2022 Are you concerned about learning? Not on file 06/22/2022 No 06/22/2022 No 06/22/2022 Digital Access Answer Date Recorded No 07/24/2022 No 07/24/2022 Reliable internet access at home? Not on file 07/24/2022 Device with a working camera? Not on file Sex and Gender Information Value Date Recorded Sex Assigned at Not on file Legal Sex Male 12:18 PM EST Gender Identity Not on file Sexual Orientation Not on file Plan of Treatment Not on file Medical Devices Not on file Insurance [place] BLUE REPLACEMENT MEDICARE PPO BLUE REPLACEMENT MEDICARE PPO BLUE REPLACEMENT MEDICARE PPO BLUE REPLACEMENT MEDICARE PPO BLUE REPLACEMENT MEDICARE PPO BLUE REPLACEMENT MEDICARE PPO BLUE REPLACEMENT MEDICARE PPO BLUE REPLACEMENT [place] BL[place] REPLACEMENT Care Teams Chemical Unit Operator Relationship Specialty Start Date End Date Omer Murillo MD [address] [place] [address] [place] [address] PCP - General Internal Medicine 12/29/19 Additional Source Comments The information contained in this document represents components of the legal health record. It is not the complete legal health record.[facility]
== END 2024-09-14 15:49 | disposition home or self-care (01) ==
LOC: HO.HMCHD 14:58
PROVIDERS: PCP Family Medicine; Visit Provider Internal Medicine
DX: I48.91 Unspecified atrial fibrillation (principal)

== ENCOUNTER → 2024-09-14 14:57 | Outpatient (BNVA) | payer MEDICARE, SELFPAY | PROVIDERS: PCP Family Medicine; Visit Provider Internal Medicine | DX: I48.91 Unspecified atrial fibrillation (principal); F03.90 Unspecified dementia, unspecified severity, without behavioral disturbance, psychotic disturbance, mood disturbance, and anxiety; Z96.89 Presence of other specified functional implants | CPT/HCPCS: 99202 ==

== ENCOUNTER 2024-09-26 10:21 | Outpatient (REF) | payer MEDICARE, SELFPAY ==
[2024-09-26 14:28] LABS: Hematocrit 50.6 % (42.0-52.0); Hemoglobin 15.8 g/dl (14.0-18.0); Mean Corpuscular HGB Conc 31.2 g/dl (31.0-36.0); Mean Corpuscular Hemoglobin 28.4 pg (27.0-33.0); Mean Corpuscular Volume 90.8 fL (80.0-98.0); NRBC Abs Auto 0.000 X10*3/uL (0.0-0.012); NRBC Pct Auto 0.0 /100WBC (0.0-0.2); Platelet Count 178 X10*3/uL (160-400); Red Blood Count 5.57 X10*6/uL (4.60-5.80); White Blood Count 3.4 X10*3/uL (4.8-10.8)
[2024-09-26 15:03] LABS: Appearance Urine Cloudy; Glucose Urine UA Negative (Negative); PH 8.0 (5.0-9.0); Specific Gravity - Urine 1.010 (1.005-1.025); UMIC TRIGGER UA YES
[2024-09-26 15:44] LABS: Alanine Aminotransferase 33 U/L (0-40); Albumin Level 4.1 g/dL (3.5-5.0); Alkaline Phosphatase 110 U/L (39-117); Anion Gap 13 (12-20); Aspartate Amino Transferase 47 U/L (5-37); Blood Urea Nitrogen 18 mg/dL (9-16); Calcium 9.5 mg/dL (8.4-10.2); Carbon Dioxide 29 mmol/L (22-29); Chloride 102 mmol/L (96-108); Cholesterol 166 mg/dL (<200); Estimated Glomerular Filt Rate > 60; HDL Cholesterol 37 mg/dL (>40); Potassium 4.1 mmol/L (3.3-5.1); Sodium 140 mmol/L (135-145); Total Protein 8.4 g/dL (6.5-8.0); Triglycerides 96 mg/dL (<150)
[2024-09-26 15:55] LABS: Thyroid Stimulating Hormone 2.84 uIU/mL (0.32-4.0)
[2024-09-26 16:12] LABS: Folate 15.1 ng/mL (> or = 4.0); Vitamin B12 1285 pg/mL (200-900)
== END 2024-09-26 10:22 | disposition home or self-care (01) ==
LOC: HO.HMGCLDS 10:21
PROVIDERS: PCP Internal Medicine; Visit Provider Internal Medicine
DX: Z13.6 Encounter for screening for cardiovascular disorders (principal); I48.91 Unspecified atrial fibrillation
CPT/HCPCS: 36415; 80048; 80061; 80076; 81001; 81003; 82607; 82746; 84443; 85027

== ENCOUNTER 2024-11-06 10:21 | Outpatient (AMB) | payer MEDICARE, SELFPAY ==
--- NOTE | 2024-11-06 10:21 | MHC.OFFVIS ---
Intake Visit Reasons: 3M follow up Intake Note: Patient is present for Telehealth Urology Medication:Myrbetriq Antibiotic Allergy:NONE Blood Thinner:Apixaban LAST PVR:169ML'S Grease Maker Required: No Accompanied by: Self / Same As Patient Allergies No Known Allergies Allergy (Verified 11/06/24 10:22) HPI Comments Details: Louie is a pleasant male. Accompanied by his . He is a patient of Dr. Murillo. He is seen for the following urologic issues - urinary incontinence Follow-up from trial of Myrbetriq Telemedicine Evaluation 15 min Consultation [employer] Judah Video Was unable to crush per product literature Reviewed alternate Gemtesa Per product information this can be crushed Prescription provided Three-month follow-up Only possible anticholinergic that could be considered would be tropsium Urinary urgency/frequency - detrusor hyperactivity with impaired contractility Background of stroke with dementia Has on sensed urination Using multiple pads per day Has been trialed on imipramine Discussed loss of frontal control that occurs with dementia Recommend timed voiding interested in trial of medication versus [place] catheter at nighttime Given cognitive issues can not use anticholinergics PFSH Medical History Atrial fibrillation Family History Mother No problems noted. Father No problems noted. Social History Housing: House Patient Tobacco Use Status: Never used Tobacco e-Cigarette/Vaping Use: Never Used service: No Current occupational status: retired Cognitive needs: Yes (wheelchair) Hearing needs: No Vision needs: No Telehealth Telehealth Telehealth Platform: [employer] Location of provider rendering services: practice address Location of patient: address on file Patient Identification confirmed using: Name, : Yes Telehealth method: video Patient verbally consented to treatment: Yes Patient verbally consented to billing insurance company: Yes Patient informed of any privacy concerns related to visit: Yes Minutes spent on Phone/Video with Pt.: 15 Assessment & Plan Assessment & Plan (1) Urge incontinence of urine: Code(s): N39.41 - Urge incontinence Category: Medical Plan Trial Gemtesa Medications: New vibegron may be crushed 75 mg PO DAILY 30 tabs 2RF 30 days N39.41 - Urge incontinence Discontinued mirabegron ER (Myrbetriq) Discontinued Reason: Doctor's Order 25 mg PO DAILY 30 tabs 1RF Patient Instructions: This note is constructed using voice recognition software. While every effort has been made to ensure accuracy aquatic facility manager errors may have been included. Imaging studies, laboratory and physical exam results were discussed and reviewed in detail. No major barriers to patient understanding were identified. An opportunity to ask questions regarding the treatment plan was provided. All questions were answered. The patient expressed understanding and agreement with the above treatment plan. The patient is aware they should contact our office by phone for worsening of their current condition or the appearance of new urologic symptoms. Compliance is encouraged with any medications and followup testing that is ordered. It is a privilege to participate in the urologic care of your patient. If you have any questions or concerns regarding treatment for the above conditions, or other urologic issues, please do not hesitate to contact me. The office telephone contact is [phone]. Sincerely, Dr Lance Martinez MD, [facility] - Urology Compassionate Specialist Care for the Genitourinary System Coding Level of Care Code Tele Est Pt Level 4 (49260) Diagnoses Urge incontinence of urine N39.41
--- OUTSIDE RECORDS SUMMARY | 2024-11-06 11:49 | XMS_ITS | Clinical Summary ---
Author Organization [facility] Address [address] [place] [address] Phone Care Team Providers Care Oracle Fusion Developer Name Role Phone Omer Murillo MD Primary Care Provider Social History Tobacco Use Types Packs/Day Years [...] [place]ACEMENT Care Teams Oracle Fusion Developer Relationship Specialty Start Date End Date Omer Murillo MD [address] [place] [address] [place] [address] PCP - General Internal Medicine 12/29/19 Additional Source Comments The information contained in this document represents components of the legal health record. It is not the complete legal health record.[facility]
--- OUTSIDE RECORDS SUMMARY | 2024-11-06 11:49 | XMS_ITS | Clinical Summary ---
Author Organization [facility] Address [address] [place] [address] Care Team Providers Care Residential Service Technician Name Role Phone Unknown Primary Care Provider [phone] Social History Tobacco Use Types Packs/Day Years Used Date Smoking Tobacco: Never Assessed Sex and Gender Information Value Date Recorded Sex Assigned at Not on file Legal Sex Male 4:43 PM EDT Gender Identity Not on file Sexual Orientation Not on file Plan of Treatment Health Maintenance Due Date Last Done Comments Advance Care Planning 1950 Hepatitis C Virus Screening 1950 DTaP/Tdap/Td Vaccines (1 - Tdap) 1970 Colonoscopy 1996 Pneumococcal Vaccines 50+ (1 of 1 - PCV) 2001 Zoster (Shingles) Vaccine (1 of 2) 2001 Influenza Vaccine 09/25/2024 COVID-19 Vaccine ( - 2023-2 5 season) 2024 RSV Vaccine 60 years and old er and Patients (1 - 1-dose 75+ series) 2026 Hepatitis B Vaccines Aged Out No long er eligible based on patient's age to complete this topic Insurance [employer] MEDICARE OUT OF NETWORK [address] [place] [address] Care Teams Residential Service Technician Relationship Specialty Start Date End Date Unknown Unknow Provider Address PCP - General 09/08/18
== END 2024-11-06 10:48 | disposition home or self-care (01) ==
LOC: HO.HUSH 10:21
PROVIDERS: PCP Internal Medicine; Visit Provider Urology
DX: N39.41 Urge incontinence (principal)
CPT/HCPCS: 99214

== ENCOUNTER 2024-11-30 14:22 | Outpatient (AMB) | payer MEDICARE, SELFPAY ==
--- NOTE | 2024-11-30 14:26 | A.OFFVIS_ITS ---
Intake Visit Reasons: Dementia Allergies No Known Allergies Allergy (Verified 11/06/24 10:22) HPI Comments Details: The patient is a 74-year-old male presenting with concerns about cognitive decline and follow-up on stroke and laryngeal cancer complications. The patient has a significant medical history of laryngeal cancer, initially treated with radiation and surgical interventions for stricture, leading to recurrent dilation procedures. The patient experienced a right middle cerebral artery ischemic stroke during a period when anticoagulation therapy was interrupted for a procedure. The stroke led to the onset of noticeable cognitive issues, including disorientation and memory decline. He inaccurately reports the year and seasons and fails to recall specific dates. His ambulatory capabilities are weak; while he uses ambulatory aids, his gait remains unstable, with previously frequent falls. He is incontinent and relies entirely on a feeding tube for nutrition and medication administration due to swallowing difficulties post-cancer treatments. Recent brain imaging highlights a right middle cerebral artery ischemic infarct and associated ventriculomegaly. [facility] Medical History (Updated 11/30/24 @ 14:53 by Stanley Elliott MD) Dementia Atrial fibrillation Family History Mother No problems noted. Father No problems noted. Social History Housing: House Patient Tobacco Use Status: Never used Tobacco e-Cigarette/Vaping Use: Never Used service: No Current occupational status: retired Cognitive needs: Yes (wheelchair) Hearing needs: No Vision needs: No Review of Systems Const Details: - Neurological: Reports memory loss, disorientation, ambulatory difficulty, falls, and stroke. - Genitourinary: Reports urinary incontinence. - Gastrointestinal: Reports total reliance on a feeding tube. - Musculoskeletal: Reports difficulty with ambulation, requires assistance from a walker or a cane. - Cardiovascular: Reports a history of atrial fibrillation. Physical Exam Neuro Other: Mental Status: He is alert and awake with normal spontaneity of speech and fluency. Affect is flat. He has following simple commands. He did not know what year this was and what month. He did not know the date. He knew where he was. Cranial Nerves: CN II: Visual davis full to confrontation, visual acuity intact. CN III, IV, : Pupils equal, round, reactive to light and accommodation. Extraocular movements are normal. CN V: Facial sensation is normal. CN VII: Facial movements symmetrical. CN VIII: Hearing intact to bedside conversation is normal. CN IX, X: Palate elevates symmetrically. CN XI: Shoulder shrug and head turn symmetrical. CN XII: Tongue midline without atrophy or fasciculations. Deep tendon reflexes are trace to absent. He is in a wheelchair. Extrapyramidal: Full facial expressions and blinking. No rigidity. Movements are appropriate with no tremor or abnormality. Speech: Mild dysarthria Assessment & Plan Assessment & Plan (1) Multifactorial dementia: Code(s): F03.90 - Unspecified dementia, unspecified severity, without behavioral disturbance, psychotic disturbance, mood disturbance, and anxiety Category: Medical (2) Right middle cerebral artery stroke: Code(s): I63.511 - Cerebral infarction due to unspecified occlusion or stenosis of right middle cerebral artery Category: Medical (3) (Idiopathic) normal pressure hydrocephalus: Code(s): G91.2 - (Idiopathic) normal pressure hydrocephalus Category: Medical Plan Impression: 74 years old man with paroxysmal atrial fibrillation on anticoagulation with previous history of laryngeal cancer initially treated with radiation, which resulted in stricture. He used to have dilatation procedure and during that time his anticoagulation was stopped. During 1 of those sessions, he had a right middle cerebral artery area ischemic infarct for which he was transferred to [facility] and had intra-arterial clot retrieval. His stated that he did well after that but before the procedure and afterwards his cognitive functioning deteriorated. Now he also was having significant difficulty ambulation and controlling his bladder. His head CT in 2021, revealed moderate ventriculomegaly and a moderate size right subcortical middle cerebral artery area ischemic infarct. I have requested an MRI of brain without contrast to look at the status of ventricles to see if any intervention could be done to improve his quality of life. Otherwise treatment would be conservative and supportive. Orders: Orders MR head/brain wo con Today G91.2 - (Idiopathic) normal pressure hydrocephalus, I63.511 - Cerebral infarction due to unspecified occlusion or stenosis of right middle cerebral artery Coding Level of Care Code New Pt Level 4 (34278) Diagnoses Multifactorial dementia F03.90 Right middle cerebral artery stroke I63.511 (Idiopathic) normal pressure hydrocephalus G91.2
--- OUTSIDE RECORDS SUMMARY | 2024-11-30 16:50 | XMS_ITS | Clinical Summary ---
Author Organization [facility] Address [address] [place] [address] Phone Care Team Providers Care Collections Manager Name Role Phone Omer Murillo MD Primary [...] [place]UE [place]PLACEMENT Care Teams Collections Manager Relationship Specialty Start Date End Date Omer Murillo MD [address] [place] [address] [place] [address] PCP - General Internal Medicine 12/29/19 Additional Source Comments The information contained in this document represents components of the legal health record. It is not the complete legal health record.[facility]
--- OUTSIDE RECORDS SUMMARY | 2024-11-30 16:50 | XMS_ITS | Clinical Summary ---
Author Organization [facility] Address [address] [place] [address] Care Team Providers Care Finishing Room Supervisor Name Role Phone Unknown Primary Care [...] [employer] MEDICARE OUT OF NETWORK [address] [place] [address] Care Teams Finishing Room Supervisor Relationship Specialty Start Date End Date Unknown Unknow Provider Address PCP - General 09/08/18
== END 2024-11-30 14:57 | disposition home or self-care (01) ==
LOC: HO.HSM 14:23
PROVIDERS: PCP Family Medicine; Visit Provider Psychiatry & Neurology Neurology
DX: F03.90 Unspecified dementia, unspecified severity, without behavioral disturbance, psychotic disturbance, mood disturbance, and anxiety (principal); I63.511 Cerebral infarction due to unspecified occlusion or stenosis of right middle cerebral artery; G91.2 (Idiopathic) normal pressure hydrocephalus
CPT/HCPCS: 99204

== ENCOUNTER → 2024-11-30 14:22 | Outpatient (BNVA) | payer MEDICARE, SELFPAY | PROVIDERS: PCP Family Medicine; Visit Provider Psychiatry & Neurology Neurology | DX: G91.2 (Idiopathic) normal pressure hydrocephalus (principal); F03.90 Unspecified dementia, unspecified severity, without behavioral disturbance, psychotic disturbance, mood disturbance, and anxiety; I63.511 Cerebral infarction due to unspecified occlusion or stenosis of right middle cerebral artery | CPT/HCPCS: 99202 ==

== ENCOUNTER 2024-12-14 15:19 | Outpatient (AMB) | payer MEDICARE, SELFPAY ==
--- NOTE | 2024-12-14 15:19 | MHC.PC.OV ---
Vital Signs 12/14/24 15:20 Height 5 ft 9 in Weight 159 lb BMI 23.5 BP 118/70 Blood Pressure Location Lt brachial Position Sitting Pulse 63 Pulse Source Pulse Oximeter Temp 97.6 F Temp Source Temporal Artery Scan Pulse Oximetry (%) 99 Oxygen Delivery Method Room Air Intake Visit Reasons: 3 month f/u - see comments Manager Multimedia Required: No Accompanied by: Spouse Allergies No Known Allergies Allergy (Verified 12/14/24 15:21) Medication List - Last Reconciled 01/04/25 by GRETCHEN Reyes apixaban (Eliquis) 5 mg PO BID 90 days imipramine HCl 25 mg PO BEDTIME metoprolol tartrate 12.5 mg (1/2 x 25 mg) PO BID 90 days propafenone ER 225 mg PO TID 90 days [sertraline 7.5 ml via G-tube daily; ] sertraline 7.5ml via feeding tube daily; simvastatin 20 mg PO BEDTIME vibegron 75 mg PO DAILY 30 days Tobacco use date assessed: 12/14/24 Fall risk assessment: 1 Fall in past year Last assessed Fall Risk: 12/14/24 Dental Screening Dental Screen Date: 12/14/24 Did you have a dental visit in the last 12 months?: No Did you have a dental problem in the last 6 months where you did not have access to dental care?: No HPI HPI Comments History of Present Illness Details The patient is a 74-year-old male with A fib, dementia, history of CVA, HLD, anxiety and urinary incontinence presenting to establish care and follow up with dementia, constipation, and urinary incontinence. The patient has been experiencing symptoms of dementia, including memory loss and confusion, which have been progressively worsening. He has difficulty remembering recent events and often forgets familiar places and people. An MRI has been recommended to assess the extent of the condition, but it has not yet been scheduled. He was seen by Neurology a few weeks ago. The patient also suffers from significant constipation, which has led to severe episodes requiring manual disimpaction and enemas. This issue has been exacerbated by his limited mobility and reluctance to engage in physical activity. Efforts to manage this include increased fluid intake and the use of enemas when necessary. Urinary incontinence is another concern, with the patient experiencing frequent episodes of incontinence, particularly at night. Medications have been tried to manage this, but with limited success, and there is consideration of discontinuing them to assess their impact on constipation. He was last seen by Urology in October. The patient has a history of atrial fibrillation, which is currently managed with Eliquis, providing better control than previous treatments. He also has a history of stroke, which occurred during a period when he was off warfarin for a procedure. The patient has been diagnosed with hypercholesterolemia, for which simvastatin has been prescribed. There is also an elevation in vitamin B12 levels, the cause of which is unclear and may require further investigation. The patient has a history of cancer, which was treated prior to the , and he continues to have a G-tube in place for feeding. He is on Sertraline for anxiety and takes Imipramine for sleep Medical History: - Dementia - Anxiety - Constipation -Urinary incontinence - Atrial fibrillation - Hypercholesterolemia - Vitamin B12 elevation - History of stroke - History of cancer Patient was informed and verbally consented to the use of an ambient scribe for clinic note documentation during this visit. [facility] Medical History (Updated 01/04/25 @ 02:26 by GRETCHEN Reyes) Atrial fibrillation Constipation Dementia Elevated vitamin B12 level Hyperlipidemia Family History Mother No problems noted. Father No problems noted. Social History Housing: House Patient Tobacco Use Status: Never used Tobacco e-Cigarette/Vaping Use: Never Used service: No Current occupational status: retired Cognitive needs: Yes (wheelchair) Hearing needs: No Vision needs: No Questionnaire PHQ-9 Over the last 2 weeks, how often have you been bothered by any of the following problems? 1. Little interest or pleasure in doing things: not at all 2. Feeling down, depressed, or hopeless: nearly every day 3. Trouble falling or staying asleep, or sleeping too much: not at all 4. Feeling tired or having little energy: nearly every day 5. Poor appetite or overeating: not at all 6. Feeling bad about yourself - or that you are a failure or have let yourself or your family down: not at all 7. Trouble concentrating on things, such as reading the newspaper or watching television: not at all 8. Moving or speaking so slowly that other people could have noticed. Or the opposite - being so fidgety or restless that you have been moving around a lot more than usual: not at all 9. Thoughts that you would be better off or of hurting yourself in some way: not at all Total score: 6 Depression Screening Interpretation: Positive Depression Screening Follow-up: Follow-up Visit Requested Depression Screening Done: Yes Source: Developed by Drs. Matthew Hill, Abiola Charlton, Efren Albarran and colleagues, with an educational mirza from [employer]. Thrive Questionnaire Date Thrive assessed: 12/14/24 I am a: Patient Within the past 12 months, did the food you bought not last and you didn't have the money to get more?: Never true Within the past 12 months, did you worry whether your food would run out before you got money to buy more?: Never true Do you have trouble paying for medicines?: No Do you have trouble getting transportation to medical appointments?: No Do you have trouble paying your heating and electricity bill?: No Do you have trouble taking care of your child, family member or friend?: No Do you have trouble with day-to-day activities such as bathing, preparing meals, shopping, managing finances, etc.?: No Are you currently unemployed and looking for a job?: No Are you interested in more education?: No THRIVE Score: 0 AUDIT C Alcohol Use Questionnaire (AUDIT-C) 1. How often do you have a drink containing alcohol?: Never 3. How often do you have six or more drinks on one occasion?: Never Total Score: 0 FLOR[place]-7 AMB Questionnaire FLORIDA-7 Date FLOR[place] - 7 assessed: 12/14/24 Feeling nervous, anxious, or on edge: 0 = Not at all Not being able to stop or control worryin = Not at all Worrying too much about different things: 0 = Not at all Trouble relaxin = Not at all Being so restless that it is hard to sit still: 0 = Not at all Becoming easily annoyed or irritable: 0 = Not at all Feeling afraid as if something awful might happen: 0 = Not at all Total [place]-7 score (0-4 normal; 5-9 mild; 10-14 moderate; 15-21 severe): 0 Source: Developed by Drs. Matthew Hill, Abiola Charlton, Efren Albarran and colleagues, with an educational mirza from [employer]. Review of Systems Narrative - Neurological: Reports memory loss and confusion. Denies headaches. - Gastrointestinal: Reports severe constipation requiring manual disimpaction. - Genitourinary: Reports urinary incontinence, particularly at night. - Psychological: Reports anxiety and reluctance to leave the house. Physical exam (Primary Care) Vital Signs: Last Vital Signs Temp 97.6 F 12/14/24 15:20 Pulse 63 12/14/24 15:20 BP 118/70 12/14/24 15:20 Pulse Ox 99 12/14/24 15:20 Oxygen Delivery Method Room Air 12/14/24 15:20 BMI result Body Mass Index 23.5 GENERAL Well developed, Well nourished, in no apparent distress HEENT Head-Normocephalic Eyes- PERRLA, EOMI, Conjuctiva clear, lids WNL Ears- Canals clear, TMs WNL Mouth/Throat-No lesions, no erythema, no exudate Neck- Supple, No lymphadenopathy, thyroid WNL RESPIRATORY Normal I:E, Clear to auscultation CARDIOVASCULAR Regular, rate and rhythm, No murmurs or rubs NEUROLOGICAL Gait - in wheel chair PSYCHIATRIC Mood and affect anxious Appearance WNL Speech WNL Thought processes WNL Tobacco/Smoking Status: Tobacco use Status Tobacco use date assessed 12/14/24 12/14/24 15:22 Patient Tobacco Use Status Never used Tobacco 12/14/24 15:22 e-Cigarette/Vaping Use Never Used 12/14/24 15:22 PHQ-9: PHQ-9 Score PHQ-9: Total score 6 12/14/24 15:34 Depression Screening Interpretation: Positive Depression Screening Follow-up: Follow-up Visit Requested Thrive Assessment: Date of Thrive Assessment Date Thrive assessed 12/14/24 12/14/24 15:22 Coding Level of Care Code Established Pt Est Pt Level 4 (84040) Established Pt Complex EM visit Add On G2211 Patient Type Established Diagnoses Atrial fibrillation I48.91 Urge incontinence of urine N39.41 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 Assessment & Plan Assessment & Plan (1) Atrial fibrillation: Code(s): I48.91 - Unspecified atrial fibrillation Category: Medical Plan: The patient's atrial fibrillation is managed with Eliquis and Metoprolol , which has improved control compared to previous treatments. Pateint to follow up with Cardiology (2) Urge incontinence of urine: Code(s): N39.41 - Urge incontinence Category: Medical Plan: The patient has frequent urinary incontinence, particularly at night, with limited success from medications. Consideration of discontinuing current medications to assess their impact on constipation is advised. (3) Multifactorial dementia: Code(s): F03.90 - Unspecified dementia, unspecified severity, without behavioral disturbance, psychotic disturbance, mood disturbance, and anxiety Category: Medical Plan: The patient is experiencing progressive memory loss and confusion, with an MRI recommended to assess the extent of the condition. Follow-up with neurology is advised to evaluate the progression and management of dementia. (4) Elevated vitamin B12 level: Code(s): R74.8 - Abnormal levels of other serum enzymes Category: Medical Plan: The cause of elevated vitamin B12 levels is unclear and may require further investigation. (5) Constipation: Code(s): K59.00 - Constipation, unspecified Category: Medical Plan: The patient experiences severe constipation, requiring manual disimpaction and enemas. Increased fluid intake and physical activity are recommended to alleviate symptoms. Patient to follow up in 3 months or sooner if symptoms persist or worsen. (6) Hyperlipidemia: Code(s): E78.5 - Hyperlipidemia, unspecified Category: Medical Plan: The patient is prescribed simvastatin to manage elevated cholesterol levels. Regular monitoring of cholesterol and liver function is recommended. Plan During the visit, we discussed the patient's ongoing management of dementia, including the need for an MRI to assess progression and a follow-up with neurology. We also reviewed the management of constipation, emphasizing the importance of fluid intake and physical activity. For urinary incontinence, we considered the potential impact of medications and discussed the possibility of discontinuation to evaluate their effect on constipation. The patient's atrial fibrillation is well-managed with Eliquis, and we discussed the need for regular monitoring of cholesterol and liver function due to hypercholesterolemia. Patient Instructions: - Schedule an MRI to assess dementia progression. - Follow up with neurology for dementia management. - Increase fluid intake and engage in regular physical activity to manage constipation. - Consider discontinuing urinary incontinence medications to evaluate their impact on constipation. - Continue taking Eliquis for atrial fibrillation management. - Monitor cholesterol and liver function regularly.
[2024-12-14 15:20] VITALS: BP 118/70; PULSE 63; TEMP 36.4; O2SAT 99; BMI 23.5
--- OUTSIDE RECORDS SUMMARY | 2024-12-14 19:31 | XMS_ITS | Clinical Summary ---
Author Organization [facility] Address [address] [place] [address] Care Team Providers Care Peoplesoft Administrator Name Role Phone Unknown Primary Care Provider [...] - 2023-2 5 season) 2024 RSV Vaccine 50 years and old er and Patients (1 - 1-dose 75+ series) 2026 Hepatitis B Vaccines Aged Out No long er eligible based on patient's age to complete this topic Insurance MISC [employer] MEDICARE OUT OF NETWORK [address] [place] [address] Care Teams Peoplesoft Administrator Relationship Specialty Start Date End Date Unknown Unknow Provider Address PCP - General 09/08/18
--- OUTSIDE RECORDS SUMMARY | 2024-12-14 19:31 | XMS_ITS | Clinical Summary ---
Author Organization [facility] Address [address] [place] [address] Phone Care Team Providers Care Program Strategist Name Role Phone Omer Murillo MD Primary [...] [place]AC[place] Care Teams Program Strategist Relationship Specialty Start Date End Date Omer Murillo MD [address] [place] [address] [place] [id number] PCP - General Internal Medicine 12/29/19 Additional Source Comments The information contained in this document represents components of the legal health record. It is not the complete legal health record.[facility]
== END 2024-12-14 16:42 | disposition home or self-care (01) ==
LOC: HO.HMCHD 15:19
PROVIDERS: PCP Internal Medicine; Visit Provider Physician Assistant Medical
DX: I48.91 Unspecified atrial fibrillation (principal); N39.41 Urge incontinence; F03.90 Unspecified dementia, unspecified severity, without behavioral disturbance, psychotic disturbance, mood disturbance, and anxiety; R74.8 Abnormal levels of other serum enzymes; K59.00 Constipation, unspecified; E78.5 Hyperlipidemia, unspecified

== ENCOUNTER → 2024-12-14 15:19 | Outpatient (BNVA) | payer MEDICARE, SELFPAY | PROVIDERS: PCP Internal Medicine; Visit Provider Physician Assistant Medical | DX: I48.91 Unspecified atrial fibrillation (principal); F03.90 Unspecified dementia, unspecified severity, without behavioral disturbance, psychotic disturbance, mood disturbance, and anxiety; N39.41 Urge incontinence; E53.8 Deficiency of other specified B group vitamins; K59.00 Constipation, unspecified; E78.5 Hyperlipidemia, unspecified; F41.9 Anxiety disorder, unspecified; Z86.73 Personal history of transient ischemic attack (TIA), and cerebral infarction without residual deficits; Z76.89 Persons encountering health services in other specified circumstances; Z99.3 Dependence on wheelchair; Z13.31 Encounter for screening for depression | CPT/HCPCS: 96127; 99212 ==

== ENCOUNTER 2025-02-20 16:05 | Emergency (ER) | payer MEDICARE, SELFPAY ==
--- NOTE | ~2025-02-20 | XR_ITS ---
CLINICAL HISTORY: Tube placement 1 view abdomen Comparison: None provided Findings: No pneumoperitoneum or pneumatosis. No abnormal calcifications. No acute fractures. Peg tube present with oral contrast within the stomach. IMPRESSION: 1. Peg tube present with oral contrast within the stomach. 2. No acute abdominal findings. This document has been electronically signed by: Gunner Ulloa MD on 02/20/2025 19:30:56
[2025-02-20 16:30] VITALS: BP 104/51; PULSE 78; RESP 18; TEMP 36.6; O2SAT 100; BMI 25.1
--- NOTE | 2025-02-20 16:30 | ED_ITS ---
HPI - General Adult General Chief complaint: General Medical Stated complaint: G-tube fell out and can't get it back in Time Seen by Provider: 02/20/25 18:01 Related Data Home Medications ?Medication ?Instructions ?Recorded ?Confirmed imipramine HCl 25 mg tablet 25 mg PO BEDTIME 09/14/24 01/04/25 Previous Rx's ?Medication ?Instructions ?Recorded simvastatin 20 mg tablet 20 mg PO BEDTIME #90 tabs apixaban 5 mg tablet (Eliquis) 5 mg PO BID 90 days #18 0 tabs 11/09/24 metoprolol tartrate 25 mg tablet 12.5 mg (1/2 x 25 mg) PO BID 90 11/09/24 days #90 tabs sertraline See Rx Instructions G-tube D AILY 12/16/24 #660 mL sertraline 20 mg/mL oral See Rx Instructions feeding tube 12/16/24 concentrate DAILY #660 mL vibegron 75 mg tablet 75 mg PO DAILY 30 days #30 t abs 02/08/25 propafenone 225 mg tablet 225 mg PO TID #270 tabs 01/26 05/19 Allergies Allergy/AdvReac Type Severity Reaction Status Date / Time No Known Allergies Allergy Verified 02/20/25 16:36 [facility] Past Medical History Medical History (Updated 02/21/25 @ 00:01 by Analy Dominguez) Hyperlipidemia Constipation Elevated vitamin B12 level Dementia Atrial fibrillation Family History Family History Mother No problems noted. Father No problems noted. Social History Social History Housing: House Patient Tobacco Use Status: Never used Tobacco e-Cigarette/Vaping Use: Never Used service: No Current occupational status: retired Cognitive needs: Yes (wheelchair) Hearing needs: No Vision needs: No Physical Exam ED Vital Signs: Vital Signs - 24 hr 02/20/25 16:30 02/20/25 19:03 02/20/25 20:05 Temperature 97.9 F 97.3 F 97.3 F Pulse Rate 78 64 64 Respiratory Rate 18 16 16 Blood Pressure 104/51 L 122/72 122/72 Pulse Oximetry 100 100 100 Oxygen Delivery Method Room Air Room Air Room Air BMI result Body Mass Index 25.1 Course Course Course Narrative: DIGNA this is a rapid medical exam performed by Dani Beckman please refer to primary provider for complete H&P- the patient has G-tube fell out a couple of hours ago. He is unable to put it back in. Medications Administered Discontinued Medications Generic Name Dose Route Start Last Admin Trade Name Codey PRN Reason Stop Dose Admin Diatrizoate Meglum/Diatrizoate Sod 30 ml 02/20/25 19:02 02/20/25 19:03 Diatrizoate Meglumine, Sodium 30 Ml Solution PO 02/20/25 19:03 30 ml ONCE ONE Administration Lidocaine HCl 10 ml 02/20/25 18:22 02/20/25 18:36 Lidocaine Hcl 2 % Urojet 10 Ml Jel.Pf.Judah TOPICAL 02/20/25 18:23 10 ml ONCE ONE Administration Discharge Plan Discharge Clinical Impression: Dislodged gastrostomy tube Patient Disposition: Home, Self-Care Additional Instructions: The G-tube appears to be in place on Xray. The contrast is in the stomach lumen. you may follow up with the [facility] surgery team if it still gives you any issues. Prescriptions: No Action simvastatin 20 mg tablet 20 mg PO BEDTIME Qty: 90 1RF metoprolol tartrate 25 mg tablet 12.5 mg PO BID 90 Days Qty: 90 3RF Eliquis 5 mg tablet 5 mg PO BID 90 Days Qty: 180 3RF sertraline liquid See Rx Instructions G-tube DAILY Qty: 660 6RF Rx Instructions: 7.5 ml via G-tube daily; sertraline 20 mg/mL concentrate See Rx Instructions feeding tube DAILY Qty: 660 6RF Rx Instructions: 7.5ml via feeding tube daily; vibegron 75 mg tablet 75 mg PO DAILY 30 Days Qty: 30 2RF Rx Instructions: may be crushed propafenone 225 mg tablet 225 mg PO TID Qty: 270 2RF imipramine HCl 25 mg tablet 25 mg PO BEDTIME Interventions: ED Discharge Assessment Last Done: 02/20/25 20:05 Discharge Date/Time: 02/20/25 20:06 Print Language: Upper Sorbian
--- OUTSIDE RECORDS SUMMARY | 2025-02-20 18:11 | XMS_ITS | Clinical Summary ---
Author Organization [facility] Address [address] [place] [address] Phone Care Team Providers Care Senior Architect/Design Manager Name Role Phone Omer Murillo MD [...] [place] RE[place]ACEMENT Care Teams Senior Architect/Design Manager Relationship Specialty Start Date End Date Omer Murillo MD [address] [place] [address] [place] [id number] PCP - General Internal Medicine 12/29/19 Additional Source Comments The information contained in this document represents components of the legal health record. It is not the complete legal health record.[facility]
--- OUTSIDE RECORDS SUMMARY | 2025-02-20 18:11 | XMS_ITS | Clinical Summary ---
Author Organization [facility] Address [address] [place] [address] Care Team Providers Care Health Workers Name Role Phone Unknown Primary Care Provider [...] Influenza Vaccine 09/25/2024 COVID-19 Vaccine ( - 2024-2 6 season) 2024 RSV Vaccine 50 years and old er and Patients (1 - 1-dose 75+ series) 2026 Hepatitis B Vaccines Aged Out No long er eligible based on patient's age to complete this topic Insurance MISC [employer] MEDICARE OUT OF NETWORK [address] [place] [address] Care Teams Health Workers Relationship Specialty Start Date End Date Unknown Unknow Provider Address PCP - General 09/08/18
[2025-02-20] MEDS: Lidocaine HCl 2 % Urojet 10 ML JEL.PF.APP TOPICAL (18:36)
--- NOTE | 2025-02-20 18:37 | ED.GENADULT ---
HPI - General Adult General Chief complaint: General Medical Stated complaint: G-tube fell out and can't get it back in Time Seen by Provider: 02/20/25 18:01 Source: patient Mode of arrival: ambulatory Limitations: no limitations History of Present Illness ED Provider: Dr. Parada HPI narrative: 74 yo old male history of AFib on Eliquis, throat cancer G-tube dependent presenting to ER today for evaluation of G-tube dislodgement. was trying to give patient is feed unfortunately the G-tube fell out. Patient has had this G-tube placed at [facility]. Unsure which surgeon placed it. This was out 2 hours prior to arrival. According to family friend who is a nurse attempted to replace the G-tube however unable to Related Data Home Medications ?Medication ?Instructions ?Recorded ?Confirmed imipramine HCl 25 mg tablet 25 mg PO BEDTIME 09/14/24 01/04/25 Previous Rx's ?Medication ?Instructions ?Recorded simvastatin 20 mg tablet 20 mg PO BEDTIME #90 tabs 09/28/24 apixaban 5 mg tablet (Eliquis) 5 mg PO BID 90 days #180 tabs 11/09/24 metoprolol tartrate 25 mg tablet 12.5 mg (1/2 x 25 mg) PO BID 90 11/09/24 days #90 tabs sertraline See Rx Instructions G-tube DAILY 12/16/24 #660 mL sertraline 20 mg/mL oral See Rx Instructions feeding tube 12/16/24 concentrate DAILY #660 mL vibegron 75 mg tablet 75 mg PO DAILY 30 days #30 tabs 02/08/25 propafenone 225 mg tablet 225 mg PO TID #270 tabs 02/16/25 Allergies Allergy/AdvReac Type Severity Reaction Status Date / Time No Known Allergies Allergy Verified 02/20/25 16:36 Review of Systems Review of Systems: Pertinent review of systems as mentioned in HPI. All other system otherwise negative. [facility] Past Medical History [facility] Narrative: Medical history as mentioned in HPI Medical History (Updated 02/20/25 @ 18:49 by Sarah Parada DO) Hyperlipidemia Constipation Elevated vitamin B12 level Dementia Atrial fibrillation Family History Family History Mother No problems noted. Father No problems noted. Social History Social History (Reviewed 12/14/24 @ 15:21 by BONILLA Recinos Housing: House Patient Tobacco Use Status: Never used Tobacco Smoked in Last 30 Days: No e-Cigarette/Vaping Use: Never Used Use of substances other than those prescribed or required for medical reasons: No Advance Directives: No Advance Directives Information Provided: Yes Do you have a plan to hurt others: No Plan service: No Current occupational status: retired Cognitive needs: Yes (wheelchair) Hearing needs: No Vision needs: No Physical Exam ED Exam Exam: General: Pleasant, no distress, interacting appropriately Head: Normacephalic, atraumatic ENT: oral mucosa moist, neck supple, no tracheal deviation Gastrointestinal: Soft, non distended, stoma present Neurological: Awake and alert, no facial droop noted Skin: Warm and dry Psychiatric: Appropriate mood and thoughts Vital Signs: Vital Signs - 24 hr 02/20/25 16:30 02/20/25 19:03 Temperature 97.9 F 97.3 F Pulse Rate 78 64 Respiratory Rate 18 16 Blood Pressure 104/51 L 122/72 Pulse Oximetry 100 100 Oxygen Delivery Method Room Air Room Air BMI result Body Mass Index 25.1 Medications Administered Discontinued Medications Generic Name Dose Route Start Last Admin Trade Name Freq PRN Reason Stop Dose Admin Diatrizoate Meglum/Diatrizoate Sod 30 ml 02/20/25 19:02 02/20/25 19:03 Diatrizoate Meglumine, Sodium 30 Ml Solution PO 02/20/25 19:03 30 ml ONCE ONE Administration Lidocaine HCl 10 ml 02/20/25 18:22 02/20/25 18:36 Lidocaine Hcl 2 % Urojet 10 Ml Jel.Pf.Judah TOPICAL 02/20/25 18:23 10 ml ONCE ONE Administration Procedures Procedure Narrative Procedure Narrative: Gastric Tube Placement Lidocaine jelly was applied over the stoma. 3 total attempts were made to replace G-tube. I used a 16 mohawk G tube. Lube was added and push the tube in the stoma. The first initial 2 attempt I was met with resistance. On the third attempt to place the G-tube I felt a pop and immediate return of gastric content into the G tube. G-tube was inflated with 5cc of saline. KUB ordered to confirm placement. Medical Decision Making Medical Decision Making MDM Narrative: 74-year-old male history of throat cancer G-tube dependent presented for G-tube dislodgement. G-tube was replaced. It did take [address] Initial 1st to attempt I attempted with a 16 Nigerian in the 14 Nigerian however I met resistance. Did reach out to surgical team discussed the case with Dr. De La Rosa. Recommended transfer to [facility] for IR replacement of G-tube. I did discuss this option with the family. They were allowed me to give it [address] the G-tube. On the 3rd try I was able to feel a pop into the stomach with a G-tube with a return of gastric contents. KUB with contrast study has been ordered to confirm tube placement. Patient's KUB confirmed to placement. Contrast is in the stomach lumen. Patient will be discharged. Differential Diagnosis Differential Diagnoses: The differential diagnosis associated with the presentation includes G-tube dislodgement, Independent Interpretation I performed an independent interpretation of an: Plain X-Ray Radiology Impression Discussion of test interpretation with radiology: I have reviewed the radiologist's reading. Discharge Plan Discharge Clinical Impression: Dislodged gastrostomy tube Patient Disposition: Home, Self-Care Additional Instructions: The G-tube appears to be in place on Xray. The contrast is in the stomach lumen. you may follow up with the [facility] surgery team if it still gives you any issues. Prescriptions: No Action simvastatin 20 mg tablet 20 mg PO BEDTIME Qty: 90 1RF metoprolol tartrate 25 mg tablet 12.5 mg PO BID 90 Days Qty: 90 3RF Eliquis 5 mg tablet 5 mg PO BID 90 Days Qty: 180 3RF sertraline liquid See Rx Instructions G-tube DAILY Qty: 660 6RF Rx Instructions: 7.5 ml via G-tube daily; sertraline 20 mg/mL concentrate See Rx Instructions feeding tube DAILY Qty: 660 6RF Rx Instructions: 7.5ml via feeding tube daily; vibegron 75 mg tablet 75 mg PO DAILY 30 Days Qty: 30 2RF Rx Instructions: may be crushed propafenone 225 mg tablet 225 mg PO TID Qty: 270 2RF imipramine HCl 25 mg tablet 25 mg PO BEDTIME Print Language: [place]
[2025-02-20 19:03] VITALS: BP 122/72; PULSE 64; RESP 16; TEMP 36.3; O2SAT 100
[2025-02-20 20:05] VITALS: BP 122/72; PULSE 64; RESP 16; TEMP 36.3; O2SAT 100
== END 2025-02-20 20:06 | disposition home or self-care (01) ==
PROVIDERS: Emergency Provider Student in an Organized Health Care Education/Training Program; PCP Physician Assistant Medical
DX: T85.528A Displacement of other gastrointestinal prosthetic devices, implants and grafts, initial encounter (principal); Y73.8 Miscellaneous gastroenterology and urology devices associated with adverse incidents, not elsewhere classified; Y92.009 Unspecified place in unspecified non-institutional (private) residence as the place of occurrence of the external cause; I48.91 Unspecified atrial fibrillation; E78.5 Hyperlipidemia, unspecified; Z79.01 Long term (current) use of anticoagulants; Z85.819 Personal history of malignant neoplasm of unspecified site of lip, oral cavity, and pharynx
CPT/HCPCS: 43762; 74018; 99284

== ENCOUNTER → 2025-02-20 18:31 | Outpatient (BNV) | payer MEDICARE, SELFPAY | PROVIDERS: Emergency Provider Student in an Organized Health Care Education/Training Program; PCP Physician Assistant Medical; Visit Provider Radiology Diagnostic Radiology | DX: K94.23 Gastrostomy malfunction (principal) | CPT/HCPCS: 74018 ==